=== PATIENT | male | born 1990 | race American Indian/Alaskan Native ===

== ENCOUNTER 2021-08-20 04:53 | Emergency (ER) | payer SELFPAY ==
[2021-08-20] MEDS ORDERED: SODIUM CHLORIDE 0.9% 1000 ML 1,000 ML IV ONE (06:31)
[2021-08-20 07:42] LABS: Basophils # (Auto) 0.1 K/mm3 (0.0-0.1); Basophils % (Auto) 0.6 % (0.0-1.8); Eosinophils # (Auto) 0.4 K/mm3 (0.0-0.4); Eosinophils % (Auto) 4.9 % (0.0-4.3); Hematocrit 45.3 % (35.5-45.6); Hemoglobin 14.8 gm/dl (11.8-15.2); Lymphocytes # (Auto) 3.5 K/mm3 (1.2-5.4); Lymphocytes % (Auto) 42.4 % (13.4-35.0); Mean Corpuscular HGB Conc 33 % (32-34); Mean Corpuscular Volume 89 fl (84-94); Monocytes # (Auto) 0.6 K/mm3 (0.0-0.8); Monocytes % (Auto) 7.5 % (0.0-7.3); Platelet Count 235 K/mm3 (140-440); Red Blood Count 5.08 M/mm3 (3.65-5.03)
[2021-08-20 08:09] LABS: Alanine Aminotransferase 14 units/L (7-56); Albumin 4.2 g/dL (3.9-5); BUN/Creatinine Ratio 6; Blood Urea Nitrogen 5 mg/dL (9-20); Calcium 8.7 mg/dL (8.4-10.2); Hemolysis Index 3
--- NOTE | 2021-08-20 08:40 | Emergency Department Report ---
ED Alcohol HPI - General Chief Complaint: Alcohol Stated Complaint: ETOH Time Seen by Provider: 08/20/21 06:22 Source: patient, family Mode of arrival: Stretcher Limitations: No Limitations - History of Present Illness Initial Comments: Patient is a 31-year-old male brought in by EMS for alcohol intoxication. - Related Data Allergies Allergy/AdvReac Type Severity Reaction Status Date / Time No Known Allergies Allergy Unverified 08/20/21 06:28 ED Review of Systems ROS: Stated complaint: ETOH Other details as noted in HPI Constitutional: denies: chills, fever Respiratory: denies: cough, shortness of breath, wheezing Cardiovascular: denies: chest pain, palpitations Gastrointestinal: denies: abdominal pain, nausea, diarrhea Genitourinary: denies: urgency, dysuria Musculoskeletal: denies: back pain, joint swelling, arthralgia Skin: denies: rash, lesions Neurological: denies: headache, weakness, paresthesias Psychiatric: denies: anxiety, depression ED Past Medical Hx - Past Medical History Previous Medical History?: No - Surgical History Past Surgical History?: No - Social History Smoking Status: Current Every Day Smoker Substance Use Type: Alcohol ED Physical Exam - General Limitations: No Limitations General appearance: alert, appears intoxicated (Mildly intoxicated however able to answer questioning and follow commands) - Head Head exam: Present: atraumatic, normocephalic - Neck Neck exam: Present: normal inspection - Respiratory Respiratory exam: Present: normal lung sounds bilaterally. Absent: respiratory distress - Cardiovascular Cardiovascular Exam: Present: regular rate, normal rhythm. Absent: systolic murmur, diastolic murmur, rubs, gallop - GI/Abdominal GI/Abdominal exam: Present: soft, normal bowel sounds - Rectal Rectal exam: Present: deferred - Neurological Exam Neurological exam: Present: alert, oriented X3 - Psychiatric Psychiatric exam: Present: normal affect, normal mood - Skin Skin exam: Present: warm, dry, intact, normal color. Absent: rash ED Course Vital Signs 08/20/21 04:59 Temperature 98 F Pulse Rate 62 Respiratory 18 Rate Blood Pressure 113/64 O2 Sat by Pulse 100 Oximetry ED Medical Decision Making - Lab Data Result diagrams: 08/20/21 06:54 08/20/21 06:54 - Medical Decision Making Patient brought in by EMS for alcohol intoxication. On arrival he is mildly intoxicated however able to follow commands and answer questions. He was given 1 L normal saline bolus. CBC and CMP grossly unremarkable. Serum alcohol 0.27. He was observed in the emergency department for several hours. On reassessment he appears more coherent. He is walking with a steady gait and states that he needs to leave as his father is at his doorstep waiting for him. Patient is clinically sober. States he will walk home. Critical care attestation.: If time is entered above; I have spent that time in minutes in the direct care of this critically ill patient, excluding procedure time. ED Disposition Clinical Impression: Alcohol intoxication Disposition: HOME / SELF CARE / HOMELESS Is pt being admited?: No Does the pt Need Aspirin: No Condition: Stable
[2021-08-20 08:44] VITALS: BP 123/74
== END 2021-08-20 08:35 | disposition home or self-care (01) ==
LOC: ED 04:53
DX: F10.129 Alcohol abuse with intoxication, unspecified (principal); F17.200 Nicotine dependence, unspecified, uncomplicated
CPT/HCPCS: 36415; 80053; 85025; 96360; 99284; J7030; 80320; G0480

== ENCOUNTER 2021-08-21 00:05 | Emergency (ER) | payer SELFPAY ==
[2021-08-21 09:25] VITALS: BP 150/63
[2021-08-21] MEDS ORDERED: KETOROLAC 10 MG TAB PO ONE (09:31)
[2021-08-21] MEDS ORDERED: ACETAMINOPHEN W/CODEINE 300-30 MG TAB PO ONE (09:31)
[2021-08-21] MEDS ORDERED: predniSONE 20 MG TAB PO ONE (09:31)
[2021-08-21] MEDS ORDERED: BENZONATATE 100 MG CAP PO ONE (09:31)
--- NOTE | 2021-08-21 09:51 | Emergency Department Report ---
ED General Adult HPI - General Chief complaint: Pain General Stated complaint: BODY PAIN, HALLUCINATIONS Time Seen by Provider: 08/21/21 09:15 Source: patient Mode of arrival: Ambulatory Limitations: No Limitations - History of Present Illness Initial comments: 31-year-old black male with no past medical history presents to the emergency department for evaluation of 2-day history of body aches, cough, and congestion. He states that pain is 8 out of 10 and he has not taken any medication for his symptoms. He denies fever, shortness of breath, and headache. He denies any sick contacts. MD Complaint: Body aches, cough, congestion -: Gradual, days(s) (2) Location: eyes, neck, back, abdomen, left, right, upper extremity, lower extremity Severity scale (0 -10): 8 Quality: aching Consistency: constant Associated Symptoms: cough. denies: confusion, chest pain, diaphoresis, fever/chills, headaches, loss of appetite, malaise, nausea/vomiting, rash, seizure, shortness of breath, syncope, weakness Treatments Prior to Arrival: none - Related Data Previous Rx's Medication Instructions Recorded Last Taken Type Benzonatate [Tessalon Perles] 100 mg PO Q8HR #21 cap 08/21/21 Unknown Rx Ondansetron [Zofran Odt] 4 mg PO Q8HR PRN #12 tab.rapdis 08/21/21 Unknown Rx Prednisone [predniSONE 10 mg 10 mg PO .TAPER #1 pack 08/21/21 Unknown Rx (6-Day Pack, 21 Tabs)] guaiFENesin/CODEINE [Robitussin AC] 10 ml PO TID PRN #120 ml 08/21/21 Unknown Rx Allergies Allergy/AdvReac Type Severity Reaction Status Date / Time No Known Allergies Allergy Unverified 08/20/21 06:28 ED Review of Systems ROS: Stated complaint: BODY PAIN, HALLUCINATIONS Other details as noted in HPI Comment: All other systems reviewed and negative Constitutional: denies: chills, fever, malaise, weakness Eyes: denies: eye pain, vision change ENT: ear pain, throat pain, congestion. denies: dental pain Respiratory: cough. denies: shortness of breath, SOB with exertion, SOB at rest, stridor, wheezing Cardiovascular: denies: chest pain, palpitations, dyspnea on exertion Gastrointestinal: denies: abdominal pain, nausea, vomiting Genitourinary: denies: urgency, dysuria, frequency, hematuria, discharge Musculoskeletal: back pain, myalgia Neurological: denies: headache, weakness Psychiatric: denies: anxiety, depression ED Past Medical Hx - Past Medical History Previous Medical History?: No - Surgical History Past Surgical History?: No - Social History Smoking Status: Current Every Day Smoker Substance Use Type: Alcohol - Medications Home Medications: Home Medications Medication Instructions Recorded Confirmed Last Taken Type Benzonatate [Tessalon Perles] 100 mg PO Q8HR #21 cap 08/21/21 Unknown Rx Ondansetron [Zofran Odt] 4 mg PO Q8HR PRN #12 tab.rapdis 08/21/21 Unknown Rx Prednisone [predniSONE 10 mg 10 mg PO .TAPER #1 pack 08/21/21 Unknown Rx (6-Day Pack, 21 Tabs)] guaiFENesin/CODEINE [Robitussin AC] 10 ml PO TID PRN #120 ml 08/21/21 Unknown Rx ED Physical Exam - General Limitations: No Limitations General appearance: alert, in no apparent distress - Head Head exam: Present: atraumatic, normocephalic - Eye Eye exam: Present: normal appearance. Absent: conjunctival injection - ENT ENT exam: Absent: normal exam (Bilateral nasal mucosal edema), normal orophraynx (Erythema noted to posterior oropharynx) - Neck Neck exam: Present: normal inspection, full ROM. Absent: tenderness, meningismus, lymphadenopathy - Respiratory Respiratory exam: Present: normal lung sounds bilaterally. Absent: respiratory distress, wheezes, rales, rhonchi, stridor, chest wall tenderness - Cardiovascular Cardiovascular Exam: Present: regular rate, normal heart sounds - GI/Abdominal GI/Abdominal exam: Present: soft, normal bowel sounds. Absent: distended, tenderness, guarding, rebound, rigid - Extremities Exam Extremities exam: Present: normal inspection, normal capillary refill. Absent: pedal edema, joint swelling, calf tenderness - Back Exam Back exam: Present: normal inspection, tenderness (Generalized). Absent: CVA tenderness (R), CVA tenderness (L), vertebral tenderness - Neurological Exam Neurological exam: Present: alert, oriented X3, CN II-XII intact, normal gait - Psychiatric Psychiatric exam: Present: normal affect, normal mood - Skin Skin exam: Present: warm, dry, intact, normal color ED Course Vital Signs 08/21/21 08/21/21 01:43 09:22 Temperature 98.6 F 97.7 F Pulse Rate 90 76 Respiratory 18 18 Rate Blood Pressure 129/76 Blood Pressure 150/63 [Left] O2 Sat by Pulse 94 98 Oximetry ED Medical Decision Making - Medical Decision Making 31-year-old black male with no past medical history presents to the emergency department for evaluation of 2-day history of body aches, cough, and congestion. He states that pain is 8 out of 10 and he has not taken any medication for his symptoms. He denies fever, shortness of breath, and headache. He denies any sick contacts. Physical exam unremarkable. Symptoms consistent with viral syndrome. Patient treated with one-time dose of steroids while in the emergency department along with Toradol, Tessalon Perles, and Tylenol 3. He will be discharged home with steroid pack, Robitussin-AC, Zofran, and Tessalon Perles to use as needed for symptoms. He is advised to increase intake of noncaffeinated fluids and follow- up with his primary care provider if no improvement or worsening symptoms. He is advised to return to the emergency department for any concerning symptoms. He verbalizes understanding of and agreement with plan of care. Critical care attestation.: If time is entered above; I have spent that time in minutes in the direct care of this critically ill patient, excluding procedure time. ED Disposition Clinical Impression: Viral syndrome Disposition: HOME / SELF CARE / HOMELESS Is pt being admited?: No Does the pt Need Aspirin: No Condition: Stable Instructions: Viral Illness, Adult Additional Instructions: Take medications as prescribed. Drink more noncaffeinated fluids. Follow-up with your primary care provider if no improvement or worsening symptoms. Return to the emergency department as needed. Prescriptions: Prednisone [predniSONE 10 mg (6-Day Pack, 21 Tabs)] 10 mg PO .TAPER #1 pack guaiFENesin/CODEINE [Robitussin AC] 10 ml PO TID PRN #120 ml PRN Reason: Cough Benzonatate [Tessalon Perles] 100 mg PO Q8HR #21 cap Ondansetron [Zofran Odt] 4 mg PO Q8HR PRN #12 tab.rapdis PRN Reason: Nausea And Vomiting Referrals: STEFFANIE CARROLL MD [Staff Physician] - 3-5 Days Forms: Work/School Release Form(ED) Time of Disposition: 09:57
== END 2021-08-21 11:05 | disposition home or self-care (01) ==
LOC: ED 00:05
DX: B34.9 Viral infection, unspecified (principal); F17.200 Nicotine dependence, unspecified, uncomplicated; Z79.899 Other long term (current) drug therapy
CPT/HCPCS: 99282